=== PATIENT | female | born 1995 | race American Indian/Alaskan Native ===

== ENCOUNTER 2016-09-11 13:25 | Emergency (ER) | payer SELFPAY ==
[2016-09-11 14:41] VITALS: BP 105/73
== END 2016-09-12 00:30 | disposition left against medical advice (07) ==
LOC: ED 13:25
DX: N93.9 Abnormal uterine and vaginal bleeding, unspecified (principal); F17.200 Nicotine dependence, unspecified, uncomplicated; F12.90 Cannabis use, unspecified, uncomplicated; Z53.21 Procedure and treatment not carried out due to patient leaving prior to being seen by health care provider